=== PATIENT | female | born 1970 | race Caucasian/White ===

== ENCOUNTER → 2019-07-14 | Outpatient (CLI) | payer OTHER | LOC: MRI 07:08 | DX: S99.911A Unspecified injury of right ankle, initial encounter (principal); S90.01XA Contusion of right ankle, initial encounter; M25.471 Effusion, right ankle; M77.31 Calcaneal spur, right foot; M25.871 Other specified joint disorders, right ankle and foot; M65.871 Other synovitis and tenosynovitis, right ankle and foot; X58.XXXA Exposure to other specified factors, initial encounter; Y93.89 Activity, other specified; Y92.89 Other specified places as the place of occurrence of the external cause; Y99.8 Other external cause status ==